=== PATIENT | male | born 1955 | race African-American/Black ===

== ENCOUNTER 2021-12-05 19:38 | Emergency (ER) | payer OTHER, SELFPAY ==
[2021-12-05 19:45] VITALS: BP 173/101; PULSE 101; O2SAT 98; BMI 20.7
--- NOTE | 2021-12-05 19:45 | ED_ITS ---
HPI - Overdose General Chief Complaint: Overdose Stated Complaint: overdose Source: patient and EMS Mode of arrival: EMS Limitations: no limitations History of Present Illness HPI Narrative: 66-year-old male presents via EMS for overdose. Was given 8 mg of intranasal Narcan by a bystander and required Ambu bag by PD. One patient woke up started vomiting. Stated that he used heroin and had been drinking all day. Patient states that he is not suicidal or homicidal, and this was an accident. MD complaint: accidental overdose Onset (ago): minute(s) (Within minutes of arrival) Context: Accidental Overdose: wanted to get high Treatments Prior to Arrival: narcan Review of Systems Review of Systems: Constitutional: No Fever, No Chills ENT/Mouth: No sore throat, No Rhinorrhea Eyes: No Eye Pain, No Swelling, No Redness Cardiovascular: No Chest Pain, No SOB Respiratory: No Cough, No Sputum Gastrointestinal: No Nausea, No Vomiting, No Diarrhea, No abdominal Pain Genitourinary: No Dysuria, No Hematuria Musculoskeletal: No joint pain, No Myalgias, No Joint Swelling Skin: No Skin Lesions, No rash Neuro: No Weakness, No Numbness, No Loss of Consciousness, No Dizziness, No Headache Psych: Positive overdose, No Anxiety, No Depression, No SI/HI/AH/VH Heme/Lymph: No Bruising, No Bleeding,No Lymphadenopathy Endocrine: No Polyuria, No Polydipsia Yes all other systems are reviewed and are negative [facility] Past Medical History Attestation statement: The following information was validated with the patient. Source: old records reviewed Social History Social History Alcohol intake: current Alcohol intake frequency: 3 or more drinks per day Patient Tobacco Use Status: Current everyday Tobacco user Use of substances other than those prescribed or required for medical reasons: Yes Substance Use Type: Crack/Cocaine Advance Directives: No Advance Directives Information Provided: No Physical Exam Vital Signs: Vital Signs: Last Vital Signs Temp 99.6 F 12/05/21 19:55 Pulse 107 H 12/05/21 19:55 Resp 18 12/05/21 19:55 BP 181/91 H 12/05/21 19:55 Pulse Ox 96 12/05/21 19:55 O2 Del Method 12/05/21 19:55 BMI result Body Mass Index 20.7 Appearance: Alert. Oriented X3. No acute distress. Eyes: Pupils equal, round and reactive to light. ENT: Pharynx normal. Neck: Normal inspection. Neck supple. CVS: Normal heart rate and rhythm. Pulses normal. Respiratory: No respiratory distress. Lung sounds clear to auscultation all lobes. Even unlabored respirations. Abdomen: Soft and nontender. Skin: Skin warm and dry. Normal skin color. Normal skin turgor. Extremities: No lower extremity edema. Moves all extremities against resistance. Neuro: No motor deficit. No sensory deficit. Cranial nerves 2-12 intact. Course Course Course Narrative: 66-year-old male presents via EMS for some heroin overdose and ETOH abuse. 8 mg Narcan given. Patient is alert oriented x4, answering questions politely and appropriately, is cooperative. States that he does not want detox but should go to a [facility] for care. I did have monomer recovery operator come and speak to this patient. 19:45 even unlabored respirations, alert oriented x4. Polite and cooperative. retail performance coach discussion in progress. 20:48 even unlabored respirations. Alert oriented x4. Maintaining oxygen saturation at the 98-99% on room air. There is placement at [facility] for patient in the morning. Patient's sister will be taking him there. Patient will discharged. Patient verbalized understanding of and agrees plan of care discharge home. Verbalized understanding of signs and symptoms indicating need for emergent intervention. MDM - Overdose Differential Diagnosis Differential diagnosis: Likely drug overdose Medical Records Attestation: I reviewed the patient's medical records. Discharge Plan Discharge Clinical Impression: Drug overdose Patient Disposition: Home, Self-Care Instructions: Adult Overdose (ED) Additional Instructions: You were evaluated for heroin overdose. Bystanders give you an 8 mg of Narcan and needed to help you breathe with an Ambu bag. You almost today Consider detox. [facility] [place] [facility] bed for you in the morning. Please get a ride to the [place] [facility]. The phone #[phone]. Thank you for choosing this emergency department for evaluation. Please follow-up with primary care physician as needed. Return to the emergency department for any new, concerning, or worsening symptoms. Interventions: ED Discharge Assessment Last Done: 12/05/21 21:13 Discharge Date/Time: 12/05/21 21:14
[2021-12-05 19:55] VITALS: BP 181/91; PULSE 107; RESP 18; TEMP 37.6; O2SAT 96
--- NOTE | 2021-12-05 20:44 | MHC.RECOVSUP ---
? Reason for consult:Both o Current location:ED6h o Identified substance use concern: - Overdose - Seeking ATS (detox) ? Intervention: o ATS bed search started/completed/in process ? Plan:Pt enrolled in [facility] ? Additional information:[facility] was able to get pt in to [facility], pt can go in am.
== END 2021-12-05 21:14 | disposition home or self-care (01) ==
PROVIDERS: Emergency Provider Student in an Organized Health Care Education/Training Program
DX: T40.1X1A Poisoning by heroin, accidental (unintentional), initial encounter (principal); Y92.9 Unspecified place or not applicable; F10.10 Alcohol abuse, uncomplicated; Y90.9 Presence of alcohol in blood, level not specified; F17.200 Nicotine dependence, unspecified, uncomplicated
CPT/HCPCS: 99282; 99284